=== PATIENT | female | born 2000 | race Caucasian/White ===

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

== ENCOUNTER → 2019-03-08 | Outpatient (CLI) | payer OTHER | LOC: LAB FS 10:43 | PROVIDERS: ATTEND Nurse Practitioner Family | DX: Z30.42 Encounter for surveillance of injectable contraceptive (principal) | CPT/HCPCS: 36415; 84703 ==

== ENCOUNTER → 2019-06-15 | Outpatient (CLI) | payer SELFPAY ==
[2019-06-15 13:36] LABS: HEMATOCRIT 38 % (35-52); HEMOGLOBIN 12.6 G/DL (11.5-16.0); MEAN CORPUSCULAR HEMOGLOBIN 27 PG (25-34); MEAN CORPUSCULAR HGB CONC 33 G/DL (32-36); MEAN CORPUSCULAR VOLUME 82 FL (80-99); RED CELL DISTRIBUTION WIDTH 13.2 % (10.0-14.5)
[2019-06-15 13:37] LABS: BASOPHILS % (AUTO) 1 % (0-10); EOSINOPHILS % (AUTO) 1 % (0-10); LYMPHOCYTES # (AUTO) 1.5 X 10^3 (1.0-4.0); LYMPHOCYTES % (AUTO) 38 % (12-44); MEAN PLATELET VOLUME 9.6 FL (7.4-10.4); MONOCYTES # (AUTO) 0.4 X 10^3 (0.0-1.0); MONOCYTES % (AUTO) 9 % (0-12); NEUTROPHILS % (AUTO) 51 % (42-75); PLATELET COUNT 255 10^3/uL (130-400)
[2019-06-15 14:56] LABS: BUN/CREATININE RATIO 10; CALCIUM 9.6 MG/DL (8.5-10.1); CARBON DIOXIDE 24 MMOL/L (21-32); CHLORIDE 104 MMOL/L (98-107); GFR ESTIMATED > 60; GLUCOSE 69 MG/DL (70-105); POTASSIUM 3.7 MMOL/L (3.6-5.0); SODIUM 142 MMOL/L (135-145)
[2019-06-15 14:57] LABS: ALANINE AMINOTRANSFERASE 27 U/L (0-55); ALKALINE PHOSPHATASE 44 U/L (40-136); BILIRUBIN,TOTAL 0.8 MG/DL (0.1-1.0); TOTAL PROTEIN 7.6 GM/DL (6.4-8.2)
== END ==
LOC: LAB FS 13:18
PROVIDERS: ATTEND Family Medicine
DX: R25.3 Fasciculation (principal)
CPT/HCPCS: 36415; 80053; 84443; 85025

== ENCOUNTER → 2020-08-14 | Outpatient (CLI) | payer OTHER ==
--- NOTE | 2020-08-14 09:25 | Diagnostic Imaging Report ---
PROCEDURE: CT sinuses without contrast TECHNIQUE: Multiple contiguous axial images were obtained through the sinuses without the use of intravenous contrast. Coronal and sagittal reformations were then performed. Auto Exposure Controls were utilized during the CT exam to meet ALARA standards for radiation dose reduction. INDICATION: Stridor at night. Previous tonsillectomy. FINDINGS: The paranasal sinuses are well aerated and clear. There is no mucosal thickening. No polyps. No air-fluid levels. There is moderate deviation nasal septum to the right. There is moderate diffuse mucosal hypertrophy of the nasal turbinates. No evidence of john bullosa. No destructive bony changes. The parapharyngeal tissue planes appear normal. No evidence of residual tonsillar tissue. IMPRESSION: Normal CT paranasal sinuses. Dictated by: Dictated on workstation # [id number]
== END ==
LOC: RAD 08:15
PROVIDERS: ATTEND Plastic Surgery Plastic Surgery Within the Head and Neck
DX: J02.0 Streptococcal pharyngitis (principal); Z90.89 Acquired absence of other organs
CPT/HCPCS: 70486

== ENCOUNTER 2022-04-16 10:16 | Emergency (ER) | payer SELFPAY ==
[~2022-04-16] VITALS: Ht 157 cm; Wt 52.0 kg
--- NOTE | 2022-04-16 10:48 | ED Neurological Problem ---
General Chief Complaint: Neurological Problems Stated Complaint: CONFUSION | HEADACHE | Nursing Triage Note: PT WAS BROUGHT TO ED BY MOTHER FOR C/O CONFUSION. PT REPORTS SHE FEELS LIKE SHE CAN BURST INTO TEARS AT ANY MOMENT, REPORTS FEELING THIS WAY SINCE 729. 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 PER PT SHE FORGOT WHERE SHE WAS GOING. PT REPORTS THE CONFUSION STARTED FOLLOWING A DULL HEADACHE. PT AND MOTHER AMB. TO ROOM 08 WITHOUT DIFFICULTY. Source: patient, family Exam Limitations: no limitations History of Present Illness Date Seen by Provider: Apr 16, 2022 Time Seen by Provider: 10:35 Initial Comments Patient is a 21-year-old female who presents to the emergency room with her mother chief complaint of frontal headache that she describes as a "poking" sensation. She states that she went to work around 7 AM this morning and shortly afterward had the onset of the headache. This was accompanied by feelings of confusion like she could not perform her job duties and could not remember what to do. She denies any numbness, tingling or weakness to any of her extremities. No vision changes, no speech difficulties. No recent illnesses such as fevers chills cough or congestion. She states she just got over a flulike illness about 2 weeks ago. She denies any problems with bowel or bladder. No nausea or vomiting. No chest pain or shortness of breath. She called her mom while she was at work, mom came and spent about a half an hour with her and convinced her to come to the emergency room. She states she did not take any medication for the headache. She does not usually have headaches unless she is "sick". She is on control. She does not have menstrual cycles. She denies illicit drug use, alcohol. She does vape She has a cousin who had a glioblastoma. Currently rates her headache at a "6". Timing/Duration: 1-3 hours Severity: moderate ("6") Associated Symptoms: confusion, other (headache) Allergies and Home Medications Allergies Coded Allergies: Sulfa (Sulfonamide Antibiotics) (Verified Allergy, Unknown, 04/16/22) cinnamon (Verified Allergy, Unknown, 04/16/22) sulfamethoxazole (Verified Allergy, Unknown, 04/16/22) trimethoprim (Verified Allergy, Unknown, 04/16/22) Patient Home Medication List Home Medication List Reviewed: Yes Amoxicillin (Amoxicillin) 500 Mg Capsule, 1 EACH PO TID Prescribed by: ROBERT MCGILL on 12/29/111907 Cetirizine Hcl (Cetirizine Hcl) 10 Mg Tablet, 10 MG PO DAILY, (Reported) Entered as Reported by: JIM ARIAS on 12/29/111839 Fluticasone Propionate (Flovent Hfa 110 Mcg) 12 Gm Aer.w.adap, 1 PUFF IH BID, (Reported) Entered as Reported by: JIM ARIAS on 12/29/111838 Mometasone Furoate (Nasonex) 17 Gm [place], 1 SPRAY NS UD, (Reported) Entered as Reported by: JIM ARIAS on 12/29/111839 Montelukast Sodium (Singulair 10 Mg) 10 Mg Tablet, 1 TAB PO DAILY, (Reported) Entered as Reported by: JIM ARIAS on 12/29/111838 Ranitidine Hcl (Ranitidine Hcl) 75 Mg Tablet, 75 MG PO, (Reported) Entered as Reported by: JIM ARIAS on 12/29/111839 Review of Systems Review of Systems Constitutional: see HPI Eyes: No Symptoms Reported Ears, Nose, Mouth, Throat: no symptoms reported Respiratory: no symptoms reported Cardiovascular: no symptoms reported Gastrointestinal: no symptoms reported Genitourinary: no symptoms reported Musculoskeletal: no symptoms reported Skin: no symptoms reported Psychiatric/Neurological: Cognitive Dysfunction, Headache Endocrine: No Symptoms Reported All Other Systems Reviewed Negative Unless Noted: Yes Past Uzsxcba-Kevsjk-Itbuop Hx Patient Social History Tobacco Use?: No Use of E-Cig and/or Vaping dev: Yes E-Cig or Vaping type used: Nicotine Substance use?: No Alcohol Use?: No Pt feels they are or have been: No Immunizations Up To Date Influenza Vaccine Up-to-Date: No; Not Current First/Initial COVID19 Vaccinat: 2020 Second COVID19 Vaccination Daniel: 2020 COVID19 Vaccine 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 Last Menstrual Period: Apr 20, 2018 Physical Exam Vital Signs Vital Signs - First Documented 04/16/22 10:23 Temp 36.5 Pulse 73 Resp 18 B/P (MAP) 115/59 (77) Pulse Ox 97 O2 Delivery Room Air Capillary Refill : Less Than 3 Seconds Height, Weight, BMI Height: '" Weight: lbs. oz. 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, no motor/sensory deficits, alert, normal mood/affect, oriented x 3; No abnormal cerebellar tests Crainal Nerves: normal hearing, normal speech, PERRL; No abnormal speech, No facial asymmetry, No facial droop, No facial paresthesias, No facial weakness, No gaze palsy, No tongue deviation to R, No tongue deviation to L Coordination/Gait: normal finger to nose, normal gait, negative Romberg's sign Motor/Sensory: no motor deficit, no sensory deficit, no pronator drift Skin: normal color, warm/dry Progress/Results/Core Measures Results/Orders Lab Results Laboratory Tests Test 04/16/22 10:50 04/16/22 10:54 Range/Units White Blood Count 5.9 4.3-11.0 10^3/uL Red Blood Count 4.88 3.80-5.11 10^6/uL Hemoglobin 13.7 11.5-16.0 g/dL Hematocrit 42 35-52 % Mean Corpuscular Volume 85 80-99 fL Mean Corpuscular Hemoglobin 28 25-34 pg Mean Corpuscular Hemoglobin Concent 33 32-36 g/dL Red Cell Distribution Width 12.3 10.0-14.5 % Platelet Count 246 130-400 10^3/uL Mean Platelet Volume 9.8 9.0-12.2 fL Immature Granulocyte % (Auto) 0 % Neutrophils (%) (Auto) 63 42-75 % Lymphocytes (%) (Auto) 28 12-44 % Monocytes (%) (Auto) 7 0-12 % Eosinophils (%) (Auto) 1 0-10 % Basophils (%) (Auto) 1 0-10 % Neutrophils # (Auto) 3.7 1.8-7.8 10^3/uL Lymphocytes # (Auto) 1.7 1.0-4.0 10^3/uL Monocytes # (Auto) 0.4 0.0-1.0 10^3/uL Eosinophils # (Auto) 0.1 0.0-0.3 10^3/uL Basophils # (Auto) 0.0 0.0-0.1 10^3/uL Immature Granulocyte # (Auto) 0.0 0.0-0.1 10^3/uL Sodium Level 139 135-145 MMOL/L Potassium Level 3.7 3.6-5.0 MMOL/L Chloride Level 107 98-107 MMOL/L Carbon Dioxide Level 22 21-32 MMOL/L Anion Gap 10 5-14 MMOL/L Blood Urea Nitrogen 10 7-18 MG/DL Creatinine 0.76 0.60-1.30 MG/DL Estimat Glomerular Filtration Rate 114 BUN/Creatinine Ratio 13 Glucose Level 74 70-105 MG/DL Calcium Level 9.6 8.5-10.1 MG/DL Serum Test, Qualitative NEGATIVE NEGATIVE Urine Opiates Screen NEGATIVE NEGATIVE Urine Oxycodone Screen NEGATIVE NEGATIVE Urine Methadone Screen NEGATIVE NEGATIVE Urine Propoxyphene Screen NEGATIVE NEGATIVE Urine Barbiturates Screen NEGATIVE NEGATIVE Ur Tricyclic Antidepressants Screen NEGATIVE NEGATIVE Urine Phencyclidine Screen NEGATIVE NEGATIVE Urine Amphetamines Screen NEGATIVE NEGATIVE Urine Methamphetamines Screen NEGATIVE NEGATIVE Urine Benzodiazepines Screen NEGATIVE NEGATIVE Urine Cocaine Screen NEGATIVE NEGATIVE Urine Cannabinoids Screen NEGATIVE NEGATIVE My Orders Orders - ZI KNIGHT MD Ed Iv/Invasive Line Start (04/16/22 10:53) Cbc With Automated Diff (04/16/22 10:53) Basic Metabolic Panel (04/16/22 10:53) Drug Screen Stat (Urine) (04/16/22 10:53) Hcg,Qualitative Serum (04/16/22 10:53) Ketorolac Injection (Toradol Injection) (04/16/22 11:00) Medications Given in ED Current Medications Medications Dose Ordered Sig/Janelle Route Start Time Stop Time Status Last Admin Dose Admin Ketorolac Tromethamine 30 mg ONCE ONCE IVP 04/16/22 11:00 04/16/22 11:01 DC 04/16/22 11:04 30 MG Vital Signs/I&O 04/16/22 10:23 Temp 36.5 Pulse 73 Resp 18 B/P (MAP) 115/59 (77) Pulse Ox 97 O2 Delivery Room Air Blood Pressure Mean: 77 Progress Progress Note : Time: 12:13 Progress Note Patient seen and evaluated, 21-year-old with frontal headache and she reports confusion. On arrival she is not confused and able to quite clearly relate a history of the events of the morning. She had basic laboratory studies done including test and urine drug screen. All of these were negative/normal. She has a normal neurologic exam, no motor or sensory deficits. No abnormal cerebellar findings. She does not appear cognitively impaired on exam. No other focal neurologic deficits. No clinical or objective findings to warrant advanced imaging such as CT scan of the brain. She is treated with IV Toradol and had complete resolution of her headache and feels "tired" at this point. Her mother verbalized some concerns about having issues with her serotonin due to her antidepressant. She has no clinical or objective findings of acute serotonin syndrome. I recommended close follow-up with her primary care provider for further evaluation and possible work-up of headaches. This may have been a "complex migraine" as her symptoms improved and went away as her headache did. No concerns for subarachnoid hemorrhage, no concerns for meningitis or encephalitis. Patient is advised to take Tylenol and ibuprofen throughout the day today, drink plenty of fluids to stay well-hydrated and return precautions have been provided. She verbalized understanding. All questions are sought and answered. Patient is improved at discharge. Departure Impression Primary Impression: Migraine equivalent Disposition: 01 HOME, SELF-CARE Condition: Improved Departure-Patient Inst. Decision time for Depature: 12:15 Referrals: ANTONINO LIU APRN (PCP) Primary Care Physician [facility] (Family) Primary Care Physician Patient Instructions: Migraines in Adults Add. Discharge Instructions: Drink plenty of fluids throughout the day today to stay well-hydrated. You should take 2 extra strength Tylenol or 3 [id number] generic ibuprofen tablets every 6 hours with a little food as needed for headache/pain. Return to the Emergency Department for any new, concerning or emergent complaints. Work/School Note: Work Release Form Date Seen in the Emergency Department: Apr 16, 2022 Return to Work: Apr 17, 2022 Copy Copies To 1: ALEAH MENSAH KATHRYN M MD Apr 16, 2022 10:48
[2022-04-16] MEDS ORDERED: KETOROLAC 30 MG/ML VIAL IVP ONE (11:00)
[2022-04-16 11:02] LABS: BASOPHILS % (AUTO) 1 % (0-10); EOSINOPHILS # (AUTO) 0.1 10^3/uL (0.0-0.3); EOSINOPHILS % (AUTO) 1 % (0-10); HEMATOCRIT 42 % (35-52); HEMOGLOBIN 13.7 g/dL (11.5-16.0); LYMPHOCYTES # (AUTO) 1.7 10^3/uL (1.0-4.0); LYMPHOCYTES % (AUTO) 28 % (12-44); MEAN CORPUSCULAR HEMOGLOBIN 28 pg (25-34); MEAN CORPUSCULAR HGB CONC 33 g/dL (32-36); MEAN CORPUSCULAR VOLUME 85 fL (80-99); MEAN PLATELET VOLUME 9.8 fL (9.0-12.2); MONOCYTES # (AUTO) 0.4 10^3/uL (0.0-1.0); MONOCYTES % (AUTO) 7 % (0-12); NEUTROPHILS # (AUTO) 3.7 10^3/uL (1.8-7.8); NEUTROPHILS % (AUTO) 63 % (42-75); PLATELET COUNT 246 10^3/uL (130-400); WHITE BLOOD COUNT 5.9 10^3/uL (4.3-11.0)
[2022-04-16 11:15] LABS: AMPHETAMINE SCREEN, URINE NEGATIVE (NEGATIVE); BARBITURATE SCREEN URINE NEGATIVE (NEGATIVE); BENZODIAZEPINES SCREEN URINE NEGATIVE (NEGATIVE); CANNABINOID SCREEN, URINE NEGATIVE (NEGATIVE); COCAINE SCREEN URINE NEGATIVE (NEGATIVE); METHADONE STAT NEGATIVE (NEGATIVE); OPIATE SCREEN URINE NEGATIVE (NEGATIVE); OXYCODONE STAT NEGATIVE (NEGATIVE); PROPOXYPHENE STAT NEGATIVE (NEGATIVE); TRICYCLIC ANTIDEPRESSANTS SCRE NEGATIVE (NEGATIVE)
[2022-04-16 11:23] LABS: POTASSIUM 3.7 MMOL/L (3.6-5.0)
[2022-04-16 11:24] LABS: CALCIUM 9.6 MG/DL (8.5-10.1)
[2022-04-16 11:28] LABS: CREATININE SERUM 0.76 MG/DL (0.60-1.30)
[2022-04-16 12:46] VITALS: BP 113/68
== END 2022-04-16 12:46 | disposition home or self-care (01) ==
LOC: EDUNIT# 10:16 → ER 10:19
DX: G43.909 Migraine, unspecified, not intractable, without status migrainosus (principal); F17.290 Nicotine dependence, other tobacco product, uncomplicated
CPT/HCPCS: 36415; 80048; 80306; 84703; 85025; 99282

== ENCOUNTER → 2022-10-06 | Outpatient (CLI) | payer OTHER | LOC: LAB FS 14:41 | PROVIDERS: ATTEND Registered Nurse | DX: N92.6 Irregular menstruation, unspecified (principal) | CPT/HCPCS: 36415; 84702 ==